=== PATIENT | male | born 1985 | race Caucasian/White ===

== ENCOUNTER 2020-03-24 17:15 | Emergency (ER) | payer SELFPAY ==
[~2020-03-24] VITALS: Ht 167.6 cm; Wt 79.2 kg
[2020-03-24 17:15] VITALS: BP 97/56
--- NOTE | 2020-03-24 19:35 | PHYS DOC ---
Past History Past Medical History: DVT Past Surgical History: Tonsillectomy Alcohol Use: None Adult General Chief Complaint Chief Complaint: LOWER EXT PAIN HPI HPI Patient is a 34 year old male who presents with left leg pain. He was seen at [facility] last night who felt that he likely had cellulitis but wanted to send him here for an ultrasound. We excepted him last night however he did not come until today because of issues with a ride. Patient states that he deve loped some redness and pain in that leg over the last week that has gotten significantly worse over the last couple of days. He denies any fever. He does have pain with walking. He had a DVT 2 years ago but quit taking his blood thinner after taking it for a couple of months. He also states that he is been having intermittent wrist and fingers 3-5 numbness. He states it comes and goes. He works a lot in a kitchen. He denies any neck pain or numbness in the rest of his arm. He denies any shortness of breath. He does not currently have the numbness. Review of Systems Review of Systems General: Denies fever, chills, sweats, fatigue Eyes: Denies drainage, blurred vision, eye redness HENT: Denies rhinorrhea, sore throat, earache Respiratory: Denies cough, shortness of breath, wheezing Cardiac: Denies edema, palpitations, chest pain GI: Denies abdominal pain, Nausea, vomiting MSK: Denies back pain, neck pain Skin: Reports rash, denies jaundice Neuro: Denies headache, dizziness Psychiatric: Denies SI/HI Allergies Allergies Allergies Coded Allergies Type Severity Reaction Last Updated Verified No Known Drug Allergies 03/24/20 No Physical Exam Physical Exam General: Awake, alert, NAD. Well Nourished, well hydrated. Cooperative HEENT: Atraumatic, EOMI, PERRL, airway patent, moist oral mucosa Neck: Supple, trachea midline, no cervical spine tenderness Respiratory: CTA bilaterally, normal effort, no wheezing/crackles CV: RRR, no murmur, cap refill <2 GI: Soft, nondistended, nontender, no masses MSK: No obvious deformities Skin: Warm, dry, intact. Left calf with erythema and minimal warmth spread along entire calf, right calf with minimal erythema, various scabs and wounds around body Neuro: A&O x3, speech NL, sensory and motor grossly intact, no focal deficits, full range of motion in all extremities Psych: Normal affect, normal mood, not suicidal or homicidal Current Patient Data Vital Signs Vital Signs Date Time Temp Pulse Resp B/P (MAP) Pulse Ox O2 Delivery O2 Flow Rate FiO2 03/24/20 17:15 98.8 69 18 97/56 (70) 98 Room Air EKG EKG [] Radiology/Procedures Radiology/Procedures [] Course & Med Decision Making Course & Med Decision Making Pertinent Labs and Imaging studies reviewed. (See chart for details) Patient is a 34-year-old male who presents to the emergency room complaining of pain and redness in his calf. This does appear like it could be the start of cellulitis, however this could be a viral rash, allergic reaction, or DVT. Ultrasound was ordered. Basic labs were done. Patient is an IV drug user and a chest xray was ordered. While patient is having intermittent wrist/hand numbness it follows a distribution and is likely due to carpal tunnel given his work in the kitchen and its intermittent nature. He does not have any fever, focal or d iffuse spinal tenderness, weakness to suggest spinal abscess.He does not have any fever, janeway lesions, new murmur, or splinter hemorrhages to be suggestive of endocarditis. Labs are normal. Ultrasound is negative for DVT. We will place him on clindamycin and have him follow-up with primary care physician. Patient's test results and vitals while in the ED were fully reviewed and discussed with the patient. Patient is stable and at this time does not need admission to the hospital. We have discussed strict return precautions and the importance of following up with their Primary Care Physician. Patient stated understanding and was given an opportunity to ask any questions. Patient is in agreement with plan. Dragon Disclaimer Dragon Disclaimer This electronic medical record was generated, in whole or in part, using a voice recognition dictation system. Departure Departure: Impression: Primary Impression: Leg pain Disposition: HOME/RESIDENCE PRIOR TO ADM Condition: STABLE Referrals: PCP,NO (PCP) Patient Instructions: Cellulitis Scripts Clindamycin Hcl (CLINDAMYCIN HCL) 150 Mg Capsule 3 CAP PO TID for cellulitis, #30 CAP Prov: ERIC GOTTLIEB MD 03/24/20 Justification of Admission: Justification of Admission: Justification of Admission Dx: Yes ERIC GOTTLIEB MD Mar 24, 2020 19:35
--- NOTE | 2020-03-24 19:38 | RAD ---
Exam: Chest 2 views INDICATION: Rash, fatigue TECHNIQUE: Frontal and lateral views the chest Comparisons: None FINDINGS: The cardiomediastinal silhouette and pulmonary vessels are within normal limits. The lung and pleural spaces are clear. IMPRESSION: No acute cardiopulmonary process. Electronically signed by: Dio Prasad MD (03/24/2020 7:35 PM) [id number]
--- NOTE | 2020-03-24 19:50 | RAD ---
Examination: Bilateral venous Doppler Indication: Leg swelling Technique: Ultrasound evaluation of the bilateral lower extremities was performed from the groin to the upper calf with wilks scale, spectral and color doppler evaluation. Comparison: None Findings: There is normal venous flow and compressibility of bilateral common femoral veins, femoral veins, popliteal veins, and visualized proximal calf veins. 3.9 cm left cyst is seen in the left popliteal fossa.. Impression: No evidence for deep vein thrombosis of bilateral lower extremities from the level of the calf veins to the groins. Left popliteal fossa cyst measures 3.9 cm. Electronically signed by: Shawn Salinas MD (03/24/2020 7:47 PM) CHRISTOPHER
[2020-03-24 20:20] LABS: BASO % 1 % (0-3); EOS # 0.1 x10^3/uL (0.0-0.7); EOS % 2 % (0-3); HEMATOCRIT 38.5 % (39.0-53.0); HEMOGLOBIN 13.1 g/dL (13.0-17.5); LYMPH # 1.5 x10^3/uL (1.0-4.8); LYMPH % 33 % (24-48); MEAN CORPUSCULAR HEMOGLOBIN 30 pg (25-35); MEAN CORPUSCULAR HGB CONC 34 g/dL (31-37); MEAN CORPUSCULAR VOLUME 89 fL (79-100); MONO # 0.6 x10^3/uL (0.0-1.1); MONO % 13 % (0-9); NEUT # 2.4 x10^3uL (1.8-7.7); NEUT % 52 % (31-73); PLATELET COUNT 152 x10^3/uL (140-400); RED BLOOD COUNT 4.33 x10^6/uL (4.30-5.70); RED CELL DISTRIBUTION WIDTH 13.8 % (11.5-14.5); WHITE BLOOD COUNT 4.6 x10^3/uL (4.0-11.0)
[2020-03-24 20:26] LABS: CALCIUM 8.9 mg/dL (8.5-10.1); CREATININE 1.1 mg/dL (0.7-1.3); GFR 75.7; POTASSIUM 4.2 mmol/L (3.5-5.1)
[2020-03-24 20:32] LABS: ALBUMIN 3.3 g/dL (3.4-5.0); ALBUMIN/GLOBULIN RATIO 0.9 (1.0-1.7); TOTAL BILIRUBIN 0.4 mg/dL (0.2-1.0); TOTAL PROTEIN 7.1 g/dL (6.4-8.2)
[2020-03-24] MEDS: CLINDAMYCIN HCL 150 MG CAPSULE PO ONE (20:51)
[2020-03-24] MEDS ORDERED: CLIN150C14 PO (20:58)
== END 2020-03-24 21:02 | disposition home or self-care (01) ==
LOC: ER 17:15
DX: M79.605 Pain in left leg (principal); L53.8 Other specified erythematous conditions; Z86.718 Personal history of other venous thrombosis and embolism
CPT/HCPCS: 36415; 71046; 80053; 85025; 93970; 99285